=== PATIENT | female | born 1980 | race Caucasian/White ===

== ENCOUNTER 2016-10-30 17:07 | Emergency (ER) | payer MEDICAID | END 2016-10-30 19:15 | disposition home or self-care (01) | LOC: ER 17:07 | DX: S16.1XXA Strain of muscle, fascia and tendon at neck level, initial encounter (principal); S46.811A Strain of other muscles, fascia and tendons at shoulder and upper arm level, right arm, initial encounter; S29.012A Strain of muscle and tendon of back wall of thorax, initial encounter; M54.6 Pain in thoracic spine ==